=== PATIENT | male | born 1935 | race Caucasian/White ===

== ENCOUNTER 2017-07-20 09:32 | Emergency (ER) | payer MEDICARE ==
[2017-07-20 10:10] LABS: BASOPHILS % (AUTO) 0.4 % (0.0-5.0); EOSINOPHILS % (AUTO) 0.4 % (0.0-8.0); HEMATOCRIT 42.7 % (42-54); LYMPHOCYTES % (AUTO) 8.5 % (21.0-51.0); MEAN CORPUSCULAR HEMOGLOBIN 29.8 pg (27.0-33.0); MEAN CORPUSCULAR HGB CONC 33.8 g/dL (32.0-36.0); MEAN CORPUSCULAR VOLUME 88.1 fL (79-99); MONOCYTES % (AUTO) 7.5 % (3.0-13.0); NEUTROPHILS % (AUTO) 83.2 % (40.0-77.0); PLATELET COUNT (AUTO) 262 K/uL (130-400); RED BLOOD CELL COUNT(AUTO) 4.84 MIL/uL (4.50-6.20); RED CELL DISTRIBUTION WIDTH 14.7 % (11.0-15.5); WHITE BLOOD COUNT (AUTO) 6.9 K/uL (4.8-10.8)
[2017-07-20 10:19] LABS: CREATININE 0.9 mg/dL (0.5-1.5)
[2017-07-20 10:20] LABS: PARTIAL THROMBOPLASTIN TIME 41.1 SEC (26.3-35.5)
[2017-07-20 10:28] LABS: PROTHROMBIN TIME 41.5 SEC (9.6-11.6)
[2017-07-20 10:29] LABS: INR 4.06 (0.85-1.15)
[2017-07-20 10:45] LABS: ALBUMIN 3.7 g/dL (3.5-5.0); BILIRUBIN,TOTAL 0.5 mg/dL (0.2-1.0); TOTAL PROTEIN, SERUM 7.3 g/dL (6.0-8.3)
[2017-07-20 11:06] LABS: CREATINE KINASE MB 3.8 ng/mL (0.5-3.6)
[2017-07-20] MEDS ORDERED: AZITHROMYCIN 250 MG TABLET PO ONE (11:40)
== END 2017-07-20 11:43 | disposition home or self-care (01) ==
LOC: EDBD 09:32 → EDH 09:32
DX: J20.9 Acute bronchitis, unspecified (principal); J01.90 Acute sinusitis, unspecified; D68.8 Other specified coagulation defects; E87.1 Hypo-osmolality and hyponatremia; I10 Essential (primary) hypertension; Z88.0 Allergy status to penicillin; Z79.01 Long term (current) use of anticoagulants; Z87.891 Personal history of nicotine dependence; Z98.890 Other specified postprocedural states
CPT/HCPCS: 36415; 71046; 80053; 82550; 82553; 84484; 85025; 85610; 85730; 87804; 93005